=== PATIENT | male | born 1970 | race Caucasian/White ===

== ENCOUNTER 2019-07-01 07:46 | Emergency (ER) | payer MEDICAID ==
[~2019-07-01] VITALS: Ht 177.8 cm; Wt 86.2 kg
[2019-07-01 08:02] VITALS: BP_SYST 74
[2019-07-01] MEDS ORDERED: D10W IV ONE (08:15)
[2019-07-01] MEDS ORDERED: D10W IV SCH (08:30)
[2019-07-01 09:15] VITALS: BP_SYST 74
== END 2019-07-01 09:15 | disposition home or self-care (01) ==
LOC: SED 07:46
DX: E11.649 Type 2 diabetes mellitus with hypoglycemia without coma (principal)
CPT/HCPCS: 82962; 96365; 99283